=== PATIENT | female | born 1995 | race Caucasian/White ===

== ENCOUNTER 2019-10-18 20:18 | Emergency (ER) | payer MEDICAID ==
[~2019-10-18] VITALS: Ht 157.5 cm; Wt 65.8 kg
[2019-10-18 20:24] VITALS: Ht 157.5 cm; Wt 65.8 kg
[2019-10-18 21:34] VITALS: BP 129/69
== END 2019-10-18 21:34 | disposition home or self-care (01) ==
LOC: ED 20:18
DX: S61.217A Laceration without foreign body of left little finger without damage to nail, initial encounter (principal); W26.0XXA Contact with knife, initial encounter; Y93.89 Activity, other specified; Y92.89 Other specified places as the place of occurrence of the external cause; Y99.8 Other external cause status
CPT/HCPCS: 90715; J2001